=== PATIENT | male | born 1985 | race Caucasian/White ===

== ENCOUNTER 2017-06-16 09:25 | Emergency (ER) | payer OTHER ==
--- NOTE | 2017-06-16 09:51 | EDPHY ---
H & P Stated Complaint: SEVERE ABDOMINAL PAIN, CONSTIPATED, PAINFUL URINATION Time Seen by Provider: 06/16/17 09:50 HPI/ROS: HPI: This is a 31-year-old male who presents with Chief Complaint: SEVERE ABDOMINAL PAIN, CONSTIPATED, PAINFUL URINATION Location: Left lower quadrant Quality: Sharp pain Duration: Approximately 3 hr prior to arrival Signs and Symptoms: no fever,+ nausea, no vomiting, no hematemesis, no blood in stool, no abdominal bloating, no diarrhea, no back pain, + urinary hesitancy, no dysuria, no blood in the urine, no testicular/groin pain, no indigestion, no chest pain, no shortness of breath Timing: Acute, constant Severity: 09/17 Context: Patient reports that around 630 this morning, approximately 3 hr prior to arrival, he was woke up from sleeping with sharp, severe, nonradiating left lower quadrant pain accompanied by nausea and sweating. Patient reports that yesterday he felt fine. Denies fever/diarrhea/testicular or groin pain. Had a bowel movement yesterday. No prior history of kidney stones. Denies any hematemesis, blood in stool, hemorrhoids. Patient was able to urinate upon arrival to the emergency room. Modifying Factors: Has not tried anything for the symptoms Comment: ROS: see HPI Constitutional: No fever, no chills, no weight loss Eyes: No blurred vision Respiratory: No shortness of breath, no cough Cardiovascular: No chest pain, no palpitations Gastrointestinal: + nausea, no vomiting, no diarrhea, no hematemesis, no blood in stool Genitourinary: No dysuria, no blood in urine Extremities: No myalgias, no edema Neurologic: No weakness, no numbness Skin: No rashes, no petechiae Hematologic: No bruising, no bleeding MEDICAL/SURGICAL/SOCIAL HISTORY: Medical history: Generally healthy. Does not take any regular medications. Surgical history: Denies Social history: Nonsmoker. Family history noncontributory. CONSTITUTIONAL: Moderate distress adult white male, nontoxic in appearance, awake and alert HEENT: Atraumatic and normocephalic, PERRL, EOMI. Nares patent; no rhinorrhea; no nasal mucosal edema. Tympanic membranes clear. Oropharynx clear, no exudate and moist pink mucosa. Airway patent. No lymphadenopathy. No meningismus. Cardiovascular: Normal S1/S2, regular rate, regular rhythm, without murmur rub or gallop. PULMONARY/CHEST: Symmetrical and nontender. Clear to auscultation bilaterally. Good air movement. No accessory muscle usage. ABDOMEN: Soft, nondistended, moderate left lower quadrant tenderness, no rebound, + guarding, no peritoneal signs, no masses or organomegaly. No CVAT. Hypoactive bowel sounds x4. EXTREMITIES: 2/2 pulses, strength 5/5, no deformities, no clubbing, no cyanosis or edema. NEUROLOGICAL: no focal neuro deficits. GCS 15. SKIN: Warm and dry, no erythema. no rash. Good capillary refill. Source: Patient Exam Limitations: No limitations - Personal History Current Tetanus Diphtheria and Acellular Pertussis (TDAP): Yes Tetanus Vaccine Date: < 10 YEARS - Medical/Surgical History Hx Chronic Respiratory Disease: No Hx Diabetes: No Hx Cardiac Disease: No Hx Renal Disease: No Hx Cirrhosis: No Hx Alcoholism: No Hx HIV/AIDS: No Hx Splenectomy or Spleen Trauma: No Other PMH: DENIES - Social History Smoking Status: Never smoked Constitutional: Initial Vital Signs Temperature (C) 36.4 C 06/16/17 09:27 Heart Rate 85 06/16/17 09:27 Respiratory Rate 16 06/16/17 09:27 Blood Pressure 150/107 H 06/16/17 09:27 O2 Sat (%) 100 06/16/17 09:27 O2 Delivery Mode Room Air Allergies/Adverse Reactions: No Known Allergies Allergy (Unverified 06/16/17 09:31) Home Medications: Medication Instructions Recorded NK [No Known Home Meds] 06/16/17 Medical Decision Making - Diagnostics Imaging Results: Imaging Impressions Abdomen/Pelvis CT 06/16/17 09:54 Impression: 1. Mild left hydronephrosis secondary to a recently passed 3 mm calculus now in the posterior left side of the bladder. 2. Additional nonobstructive right nephrolithiasis. 3. No appendicitis. Attention: This CT examination is specifically designed to evaluate patients who are clinically suspected of having acute obstructive uropathy. This examination does not use radiographic contrast, and as such, provides only a limited evaluation of the abdomen, pelvis and retroperitoneum. If there is further clinical suspicion for pathological conditions other than obstructive uropathy, a complete CT evaluation of the abdomen and pelvis utilizing intravenous, oral, and rectal contrast should be considered. Findings and recommendations discussed with Emergency Department, SHARIFA Gonzalez, at 10:29 a.m. on 06/16/2017. Final report concurs with initial preliminary interpretation. ED Course/Re-evaluation: Urinalysis, labs, IV fluids, IV medications, CT abdomen and pelvis scan ordered to evaluate for ureterolithiasis versus diverticulitis. 0957: Given 1 L normal saline, IV Toradol 30 mg, IV morphine 4 mg, p.o. Flomax upon arrival 1025: Called by radiologist who advised that there is a 3 mm stone that is in the left side of the bladder, incidentally there 1-3 mm right kidney stone. No signs of hydronephrosis. 1030: Reassessed patient who reports that pain has completely resolved. Discussed the passage of the left-sided stone into the bladder as well as the tiny stones in the right kidney. Reviewed labs; no leukocytosis. Creatinine 1.0. Urinalysis strained on urine that was obtained after being in the emergency room 1 hr. No stones present. Patient is tolerating p.o. Pain free. Urology referral given. This patient was seen under the supervision of my secondary supervising physician. I evaluated care for this patient independently. Discussed this patient with Dr. Mcknight who did not see the patient. Differential Diagnosis: Flank pain including but not limited to musculoskeletal causes, kidney stone, pyelonephritis, shingles, and intra-abdominal causes such as diverticulitis and appendicitis. - Data Points Laboratory Results: Laboratory Results 06/16/17 09:56 06/16/17 09:56 06/16/17 06/16/17 09:56 09:56 WBC 7.16 10^3/uL 10^3/uL (3.80-9.50) RBC 5.23 10^6/uL 10^6/uL (4.40-6.38) Hgb 16.0 g/dL g/dL (13.7-17.5) Hct 44.2 % % (40.0-51.0) MCV 84.5 fL fL (81.5-99.8) MCH 30.6 pg pg (27.9-34.1) MCHC 36.2 g/dL g/dL (32.4-36.7) RDW 12.7 % % (11.5-15.2) Plt Count 265 10^3/uL 10^3/uL (150-400) MPV 9.1 fL fL (8.7-11.7) Neut % (Auto) 81.9 % H % (39.3-74.2) Lymph % (Auto) 12.4 % L % (15.0-45.0) [place] % (Auto) 4.9 % % (4.5-13.0) Eos % (Auto) 0.3 % L % (0.6-7.6) Baso % (Auto) 0.4 % % (0.3-1.7) Nucleat RBC Rel Count 0.0 % % (0.0-0.2) Absolute Neuts (auto) 5.86 10^3/uL 10^3/uL (1.70-6.50) Absolute Lymphs (auto) 0.89 10^3/uL L 10^3/uL (1.00-3.00) Absolute Monos (auto) 0.35 10^3/uL 10^3/uL (0.30-0.80) Absolute Eos (auto) 0.02 10^3/uL L 10^3/uL (0.03-0.40) Absolute Basos (auto) 0.03 10^3/uL 10^3/uL (0.02-0.10) Absolute Nucleated RBC 0.00 10^3/uL 10^3/uL (0-0.01) Immature Gran % 0.1 % % (0.0-1.1) Immature Gran # 0.01 10^3/uL 10^3/uL (0.00-0.10) Sodium 141 mEq/L mEq/L (135-145) Potassium 3.6 mEq/L mEq/L (3.5-5.2) Chloride 105 mEq/L mEq/L (97-110) Carbon Dioxide 17 mEq/l L mEq/l (22-31) Anion Gap 19 mEq/L H mEq/L (8-16) BUN 14 mg/dL mg/dL (7-23) Creatinine 1.0 mg/dL mg/dL (0.7-1.3) Estimated GFR > 60 Glucose 123 mg/dL H mg/dL (70-100) Calcium 9.6 mg/dL mg/dL (8.5-10.4) Total Bilirubin 0.8 mg/dL mg/dL (0.1-1.4) Conjugated Bilirubin 0.4 mg/dL mg/dL (0.0-0.5) Unconjugated Bilirubin 0.4 mg/dL mg/dL (0.0-1.1) AST 25 IU/L IU/L (17-59) ALT 45 IU/L IU/L (21-72) Alkaline Phosphatase 89 IU/L IU/L (38-126) Total Protein 7.5 g/dL g/dL (6.3-8.2) Albumin 4.6 g/dL g/dL (3.5-5.0) Medications Given: Discontinued Medications Sodium Chloride (Ns) 1,000 mls @ 0 mls/hr IV ONCE ONE; Wide Open PRN Reason: Protocol Stop: 06/16/17 09:54 Last Admin: 06/16/17 10:13 Dose: 1,000 mls Ketorolac Tromethamine (Toradol) 30 mg IVP EDNOW ONE Stop: 06/16/17 09:54 Last Admin: 06/16/17 10:13 Dose: 30 mg Morphine Sulfate (Morphine) 4 mg IVP EDNOW ONE Stop: 06/16/17 09:55 Last Admin: 06/16/17 10:13 Dose: 4 mg Ondansetron HCl (Zofran) 4 mg IVP EDNOW ONE Stop: 06/16/17 09:54 Last Admin: 06/16/17 10:10 Dose: 4 mg Departure - Departure Disposition: Home, Routine, Self-Care Clinical Impression: Ureterolithiasis, Nephrolithiasis, Renal colic on left side Condition: Good Instructions: Kidney Stones (ED), Renal Colic (ED), Ureteral Stones (ED) Additional Instructions: Consume a minimum of 8-10 glasses of water or electrolyte fluid replacement drinks that include Gatorade, Powerade, Pedialyte. Eat a bland diet for the next 48 hours and then slowly advance as tolerated. Activity: Limit activity to pain tolerance. Activity resulting in pain should be avoided. Referrals: Raúl Gonsalves MD [Medical Doctor] - Follow Up Only If Needed
[2017-06-16] MEDS ORDERED: NS 1,000 ML IV ONE (09:53)
[2017-06-16] MEDS ORDERED: ONDANSETRON 4 MG/2 ML VIAL IVP ONE (09:53)
[2017-06-16] MEDS ORDERED: KETOROLAC 30 MG/1 ML SDV IVP ONE (09:53)
[2017-06-16 10:08] LABS: PLATELET COUNT 265 10^3/uL (150-400)
[2017-06-16] MEDS ORDERED: TAMSULOSIN HCL 0.4 MG CAP PO ONE (10:30)
[2017-06-16 10:56] VITALS: BP 135/77
== END 2017-06-16 10:54 | disposition home or self-care (01) ==
DX: N20.1 Calculus of ureter (principal); N20.0 Calculus of kidney; E86.9 Volume depletion, unspecified
CPT/HCPCS: 96374; J1885; J2270; J2405